=== PATIENT | male | born 1980 | race Two or more races ===

== ENCOUNTER 2016-05-26 13:45 | Emergency (ER) | payer SELFPAY ==
[~2016-05-26 13:45] MED LIST: AMOXICILLIN500 M1 PO; ANUSOL30 G1 EXT; BACIT-POLYMYXI3.5 GM OP; COLACE PO; KEFLEX500 M1 PO; VOLTAREN75 MG PO
== END 2016-05-26 13:56 | disposition home or self-care (01) ==
LOC: CFTX 13:45
DX: L72.3 Sebaceous cyst (principal); F32.9 Major depressive disorder, single episode, unspecified; F17.210 Nicotine dependence, cigarettes, uncomplicated
CPT/HCPCS: 10060; 99283

== ENCOUNTER 2016-05-30 10:04 | Emergency (ER) | payer SELFPAY | END 2016-05-30 10:10 | disposition home or self-care (01) | LOC: CFTX 10:04 | DX: L02.212 Cutaneous abscess of back [any part, except buttock and flank] (principal); F17.210 Nicotine dependence, cigarettes, uncomplicated | CPT/HCPCS: 99282 ==